=== PATIENT | female | born 1960 | race African-American/Black ===

== ENCOUNTER 2021-10-29 07:28 | Emergency (ER) | payer OTHER ==
[2021-10-29 07:47] VITALS: BP 121/66; PULSE 72; RESP 16; TEMP 98; BMI 45.6
[2021-10-29] MEDS ORDERED: ACETAMINOPHEN 500 MG TABLET (FP) PO ONE (08:47)
[2021-10-29] MEDS ORDERED: ACETAMINOPHEN 500 MG TABLET (FP) ONE (08:50)
[2021-10-29] MEDS ORDERED: LIDOCAINE 5% TOPICAL PATCH TP ONE (09:27)
[2021-10-29] MEDS ORDERED: LIDOCAINE 5% TOPICAL PATCH ONE (09:44)
[2021-10-29] MEDS ORDERED: LIDOCAINE PATCH REMOVAL MC SCH (22:00)
== END 2021-10-29 10:00 | disposition home or self-care (01) ==
LOC: JER 07:28
DX: M25.511 Pain in right shoulder (principal)
CPT/HCPCS: 99283-25

== ENCOUNTER 2022-03-06 14:06 | Emergency (ER) | payer OTHER ==
[2022-03-06 14:36] VITALS: BMI 44.1
[2022-03-06 17:44] LABS: BASO % 0.9 % (0-2.0); EOS % 1.1 % (0-4.5); HEMATOCRIT 40.1 % (32.4-45.2); HEMOGLOBIN 12.5 GM/dL (10.7-15.3); LYMPH % 32.8 % (8-40); MCH 26.6 pg (25.7-33.7); MCHC 31.1 g/dl (32.0-36.0); MEAN CELL VOLUME 85.3 fl (80-96); MEAN PLT VOLUME 8.3 fl (7.5-11.1); MONO % 7.9 % (3.8-10.2); NEUT % 57.3 % (42.8-82.8); PLATELET COUNT 240 10^3/uL (134-434); RBC 4.71 M/mm3 (3.60-5.2); RDW 13.7 % (11.6-15.6); WHITE BLOOD COUNT 6.3 K/mm3 (4.0-10.0)
[2022-03-06 18:02] LABS: CALCIUM 9.3 mg/dL (8.5-10.1)
[2022-03-06 18:04] LABS: ALBUMIN 3.4 g/dl (3.4-5.0); BLOOD UREA NITROGEN 10.5 mg/dL (7-18)
[2022-03-06 18:06] LABS: CREATININE 0.7 mg/dL (0.55-1.3)
[2022-03-06 18:09] LABS: TOT PROT 7.6 g/dl (6.4-8.2)
[2022-03-06 18:11] LABS: BILIRUBIN,TOTAL 0.4 mg/dL (0.2-1)
[2022-03-06 18:27] VITALS: BP 148/66; PULSE 73; RESP 20; TEMP 97.4
[2022-03-06 19:25] LABS: INR 1.03 (0.83-1.09); PROTHROMBIN TIME (PATIENT) 11.9 SEC (9.7-13.0)
[2022-03-06 19:28] LABS: ACTIVATED PTT 33.8 SECONDS (25.2-36.5)
== END 2022-03-06 21:03 | disposition home or self-care (01) ==
LOC: JER 14:06
DX: R06.09 Other forms of dyspnea (principal)
CPT/HCPCS: 36415; 71275-TC; 80053; 84484; 85025; 85379; 85610; 85730; 86850; 86900; 86901; 93005; 93010; 93970-TC; 99285-25; Q9967